=== PATIENT | male | born 1990 | race Caucasian/White ===

== ENCOUNTER 2017-01-24 03:34 | Emergency (ER) | payer SELFPAY ==
[2017-01-24 03:59] VITALS: BP 127/90
--- NOTE | 2017-01-24 06:30 | Diagnostic Imaging Report ---
Report Submission Date: Jan 24, 2017 4:13:07 AM CDT Patient Study Name: SURINDER ABDI Date: Jan 24, 2017 4:02:18 AM CDT Modality Type: CR Gender: M Description: LOWER EXTREMITY : 86 Institution: [facility] Physician: SARATH BUSTILLOS - ER Left knee, 3 views History: Fall, injury, pain Findings: The osseous, joint and soft tissue structures are normal. Impression: Normal. Electronically signed on Jan 24, 2017 4:13:07 AM CDT by: Timo LOZANO
--- NOTE | 2017-01-24 08:38 | ED Physician Documentation ---
Lower Extremity Problem - HISTORIAN Historian: patient - HPI Stated Complaint: Lt knee pain from slip on wet grass Chief Complaint: Lower Extremity Injury Additional Information: Slipped in wet grass, left leg straight, abducted from hip. Onset: hours (about midnight) Where: work Quality: pain (lateral knee, prox tibia) Exacerbated By: nothing Further Comments: yes (Has not been taking prescribed meds.) - ROS CONST: no problems - PAST HX Past History: other (anxiety, GERD, HLD) Surgeries/Procedures: none Allergies/Adverse Reactions: Allergies Allergy/AdvReac Type Severity Reaction Status Date / Time No Known Allergies Allergy Verified 01/24/17 03:44 Home Medications: Ambulatory Orders Medication Instructions Recorded Bupropion HCl [Bupropion HCl Sr] 150 mg PO BID 01/24/17 Fenofibrate [Fenofibrate] 54 mg PO D 01/24/17 Omeprazole [Omeprazole] 20 mg PO D 01/24/17 - SOCIAL HX Smoking History: cigarettes (1/2 PPD) Alcohol Use: none (denies) Drug Use: none (denies) - FAMILY HX Family History: no significant history - VITAL SIGNS Vital Signs: Vital Signs Temp Pulse Resp BP Pulse Ox 85 18 127/90 95 01/24/17 03:34 01/24/17 03:34 01/24/17 03:34 01/24/17 03:34 - REVIEWED ASSESSMENTS Nursing Assessment Reviewed: Yes Vitals Reviewed: Yes Progress - Progress Progress: Left knee, 3 views History: Fall, injury, pain Findings: The osseous, joint and soft tissue structures are normal. Impression: Normal. Electronically signed on Jan 24, 2017 4:13:07 AM CDT by: Timo Davenport ED Results Lab/Radiology - Orders Orders: ED Orders Category Date Time Status KNEE 1 OR 2 VIEWS [RAD] Routine Exams 01/24/17 03:57 Taken KNEE 1 OR 2 VIEWS [RAD] Stat Exams 01/24/17 Ordered Lower Extremity Problem - EXAM General Appearance: no distress Hips: bilateral hip: no evidence of injury (no pain with rotation) Legs: bilateral: no evidence of injury Knees: left: bone tenderness (no tenderness to palp, no swelling) Ankle: left: non-tender, no evidence of injury Neuro/Tendon: normal sensation, normal motor functions EENT: eye inspection normal RESPIRATORY: no resp distress JOINT: nml ROM. No: ligamentous instability VASCULAR: no vascular compromise NEURO/PSYCH: CN's nml as tested, motor nml, sensation nml, cognition normal BACK: other (erect posture, fluid movements) Discharge Clincal Impression: Strain of left knee Additional Instructions: Tylenol and ibuprofen if needed for discomfort. Ice to the sore area for 20 minutes of each hour you are awake. Home Medications: Ambulatory Orders Bupropion HCl [Bupropion HCl Sr] 150 mg PO BID 01/24/17 Fenofibrate [Fenofibrate] 54 mg PO D 01/24/17 Omeprazole [Omeprazole] 20 mg PO D 01/24/17 Condition: Good Disposition: 01 HOME, SELF-CARE Decision to Admit: NO Decision Time: 04:25
== END 2017-01-24 04:25 | disposition home or self-care (01) ==
LOC: ED 03:34
DX: S83.92XA Sprain of unspecified site of left knee, initial encounter (principal); X58.XXXA Exposure to other specified factors, initial encounter; Y93.9 Activity, unspecified; Y99.9 Unspecified external cause status
CPT/HCPCS: 73560; 99283

== ENCOUNTER 2019-07-12 06:30 | Emergency (ER) | payer OTHER ==
--- NOTE | 2019-07-12 06:36 | ED Physician Documentation ---
Chest Pain - HISTORIAN Historian: patient - HPI Stated Complaint: chest pain Chief Complaint: Chest Pain Additional Information: Patient presents to ED with left sided chest pain. Patient states he was at work when his chest pain started around 0100. He describes the pain as an electrical shock pain in left chest radiating down his left arm lasting about 10 minutes then subsiding. Around 0400 while he went outside to smoke the pain returned to a more sharp stabbing, 7/10 left sided pain, non radiating, worse with expiration and associated shortness of breath. After he got off work he came to ER. Upon presentation he rates his pain 2/10. Patient reports this chest pain has been going on for approximately 4 months with 2-3 episodes per month, each lasting approximately 10 minutes and spontaneously resolving. This morning, however, was the first time his chest pain progressed to a sharp stabbing pain. Patient first noticed this chest pain 4 months ago, shortly after his PCP started him on cholesterol medication. He stopped taking that medication. Onset: hours (5) Timing: sudden onset Duration: waxing, waning Last known Well Date: 07/12/19 Last Known Well Time: 01:00 Last known Well Code/Unknown Code: Known Context: rest Severity: moderate Quality: sharp, stabbing, other (electrical shock) Chest Pain Radiation: arms (left arm, electrical shock) Chest Pain Signs/Symptoms: denies: nausea, vomiting, diaphoresis Worsened By: deep breaths Relieved By: rest - ROS CONST: none MS/LYMPH: none GI/: denies: vomiting, nausea EYES/ENT: none SKIN/ENDO: none NEURO/PSYCH: none - PAST HX RI risk factors: no pertinent history DVT/PE Risk Factors: none TAD/AAA risk factors: none Neuro deficit: none GI disease: none Lung disease: none Surgeries/Procedures: none - SOCIAL HX Smoking History: cigarettes, greater than 1 pack/day Alcohol Use: none Drug Use: none - FAMILY HX Family HX: CAD over 55 (father) - VITAL SIGNS Vital Signs: Vital Signs Temp Pulse Resp BP Pulse Ox 127/90 01/24/17 04:29 - REVIEWED ASSESSMENTS Nursing Assessment Reviewed: Yes Vitals Reviewed: Yes <Nannette Hallman - Last Filed: 07/12/19 07:06> - VITAL SIGNS Vital Signs: Vital Signs Temp Pulse Resp BP Pulse Ox 98.6 F 84 18 143/82 98 07/12/19 06:41 07/12/19 06:41 07/12/19 06:41 07/12/19 06:41 07/12/19 06:41 <Ramón Nuno - Last Filed: 07/12/19 08:39> - PAST HX Allergies/Adverse Reactions: Allergies Allergy/AdvReac Type Severity Reaction Status Date / Time No Known Allergies Allergy Verified 01/24/17 03:44 Home Medications: Ambulatory Orders Medication Instructions Recorded Bupropion HCl [Bupropion HCl Sr] 150 mg PO BID 01/24/17 Fenofibrate 54 mg PO D 01/24/17 Omeprazole 20 mg PO D 01/24/17 Progress - Progress Progress: 644 Aspirin 324 mg given [address] Nuno, he will be taking over care. - EKG/XRAY/CT Comments: 629 NSR 83 bpm, NO ST elevation <Nannette Hallman - Last Filed: 07/12/19 07:06> - Results/Orders Results/Orders: pt received from [facility] 07 HAVING ATYPICAL CHEST PAIN SINCE NOVEMBER. his lab is satis the hx is compatible w/ chest wall pain and the cartdiac workup is normal. I discussed a chest ct. he has declined for now - will use ibu prn for trial. <Ramón Nuno - Last Filed: 07/12/19 08:39> ED Results Lab/Radiology - Orders Orders: ED Orders Category Date Time Status Place IV Lock 1T Care 07/12/19 06:34 Ordered CHEST 1VIEW [RAD] Stat Exams 07/12/19 Ordered CBC/PLATELET/DIFF Routine Lab 07/12/19 Ordered CMP Routine Lab 07/12/19 Ordered NT BNP Stat Lab 07/12/19 Ordered TROPONIN I Stat Lab 07/12/19 Ordered EKG WITH COMPARISON Stat Ther 07/12/19 Ordered <Nannette Hallman - Last Filed: 07/12/19 07:06> - Lab Results Lab Results: Lab Results 07/12/19 07/12/19 07/12/19 06:45 06:45 06:45 WBC RBC Hgb Hct MCV MCH MCHC RDW Plt Count Neut % (Auto) Lymph % (Auto) [place] % (Auto) Eos % (Auto) Baso % (Auto) Neut # (Auto) Lymph # (Auto) [place] # (Auto) Eos # (Auto) Baso # (Auto) Sodium 142 mmol/L mmol/L (137-145) Potassium 3.9 mmol/L mmol/L (3.5-5.1) Chloride 107 mmol/L mmol/L (98-107) Carbon Dioxide 22 mmol/L mmol/L (22-30) Anion Gap 16.9 BUN 15 mg/dL mg/dL (9-20) Creatinine 0.78 mg/dL mg/dL (0.66-1.25) Estimated Creat Clear 485 Est GFR ( Amer) > 60 (60 - ) Est GFR (Non-Af Amer) > 60 (60 - ) Glucose 117 mg/dL H mg/dL (74-106) Calcium 9.8 mg/dL mg/dL (8.4-10.2) Total Bilirubin 0.3 mg/dL mg/dL (0.2-1.3) AST 31 U/L U/L (15-46) ALT 47 U/L U/L (13-69) Alkaline Phosphatase 75 U/L U/L (38-126) Creatine Kinase 92 U/L U/L (55-170) Troponin I < 0.012 ng/mL L ng/mL (0.012-0.034) NT-Pro-B Natriuret Pep 28.5 pg/mL pg/mL (15.0-125.5) Total Protein 8.5 g/dL H g/dL (6.3-8.2) Albumin 4.7 g/dL g/dL (3.5-5.0) 07/12/19 06:45 WBC 9.50 K/ul K/ul (4.00-12.00) RBC 5.12 M/ul M/ul (3.90-5.20) Hgb 15.9 g/dL g/dL (12.0-18.0) Hct 46.9 % % (37.0-53.0) MCV 92.0 fl fl (80.0-100.0) MCH 30.9 pg pg (28.0-34.0) MCHC 33.8 g/dL g/dL (30.0-36.0) RDW 12.2 % % (11.3-14.3) Plt Count 302 K/mm3 K/mm3 (130-400) Neut % (Auto) 52.8 % % (39.0-79.0) Lymph % (Auto) 38.2 % % (16.0-50.0) [place] % (Auto) 6.3 % % (0.0-11.0) Eos % (Auto) 1.9 % % (0.0-6.8) Baso % (Auto) 0.8 % % (0.0-1.5) Neut # (Auto) 5.0 # k/uL # k/uL (1.4-7.7) Lymph # (Auto) 3.6 # k/uL # k/uL (0.6-4.0) [place] # (Auto) 0.6 # k/uL # k/uL (0.0-0.9) Eos # (Auto) 0.2 # k/uL # k/uL (0.0-0.6) Baso # (Auto) 0.1 # k/uL # k/uL (0.0-0.5) Sodium Potassium Chloride Carbon Dioxide Anion Gap BUN Creatinine Estimated Creat Clear Est GFR ( Amer) Est GFR (Non-Af Amer) Glucose Calcium Total Bilirubin AST ALT Alkaline Phosphatase Creatine Kinase Troponin I NT-Pro-B Natriuret Pep Total Protein Albumin - Orders Orders: ED Orders Category Date Time Status Place IV Lock 1T Care 07/12/19 06:34 Active CHEST 1VIEW [RAD] Stat Exams 07/12/19 Completed CBC/PLATELET/DIFF Routine Lab 07/12/19 06:45 Completed CMP Routine Lab 07/12/19 06:45 Completed NT BNP Stat Lab 07/12/19 06:45 Completed TROPONIN I Stat Lab 07/12/19 06:45 Completed ck [CREATINE KINASE] Routine Lab 07/12/19 06:45 Completed Aspirin [Melissa] Med 07/12/19 06:45 Discontinued 324 mg PO NOW ONE EKG WITH COMPARISON Stat Ther 07/12/19 Ordered <Ramón Nuno - Last Filed: 07/12/19 08:39> Chest Pain Physical Exam - EXAM General Appearance: no acute distress, alert EENT: TONY Neck: nml inspection Respiratory: no resp. distress, chest non-tender, nml breath sounds CVS: reg. rate & rhythm, no murmur Abdomen: soft, normal bowel sounds, non-tender Skin: warm/dry, normal color Extremities: non-tender, normal range of motion, no evidence of injury, no edema Neuro: oriented X3, motor nml, mood/affect nml <Nannette Hallman - Last Filed: 07/12/19 07:06> Discharge <Nannette Hallman - Last Filed: 07/12/19 07:06> Comments: see progress note Decision to Admit: NO Decision Time: 08:39 <Ramón Nuno - Last Filed: 07/12/19 08:39> Clincal Impression: atypical chest pain Referrals: Jessy Washington DO [Primary Care Provider] - 2 Days Condition: Good Disposition: 01 HOME, SELF-CARE
[2019-07-12] MEDS: ASPIRIN 81 MG CHEW TAB PO ONE (07:03)
[2019-07-12 07:17] LABS: BASOPHILS % 0.8 % (0.0-1.5); eGFR (Non-African) > 60
--- NOTE | 2019-07-12 07:33 | Diagnostic Imaging Report ---
PATIENT MR#: [id number] PATIENT PATIENT NAME: SURINDER ABDI DATE OF : 1990 REFERRING PHYSICIAN: Nannette Garcia EXAM DATE: 07/12/2019 ACCESSION NUMBER: [id number] EXAM DESCRIPTION: CHEST 1VIEW Chest, AP portable History: Chest pain Findings: No infiltrate, effusion or pneumothorax is present. Heart size, mediastinum and pulmonary v ascularity are normal. Impression: No active pulmonary disease. Read by: Dr. Timo Davenport Transcribed by: Transcribed Date: Electronically signed by: Dr. Timo Davenport Date signed: 07/12/2019 7:32:56 AM
[2019-07-12 08:41] VITALS: BP 135/82
== END 2019-07-12 08:40 | disposition home or self-care (01) ==
LOC: ED 06:30
DX: R07.89 Other chest pain (principal)
CPT/HCPCS: 71045; 80053; 82550; 83880; 84484; 85025; 93005; 99283; 99284; S1016